=== PATIENT | male | born 1995 | race American Indian/Alaskan Native ===

== ENCOUNTER 2017-05-19 00:57 | Emergency (ER) | payer OTHER, MEDICAID ==
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
[2017-05-19 02:55] VITALS: BP 136/71; PULSE 78; RESP 17; TEMP 98.7; O2SAT 99
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
--- NOTE | 2017-05-20 14:37 | ED PDOC ---
ED Additional Note - Date & Time of Evaluation Date of Evaluation: 05/20/17 Time of Evaluation: 14:35 - Physician Additional Note Physician Additional Note: I spoke to the patient that he is still pretty uncomfortable on the neck. I discussed about the official reading on the cervical spine xray which is limited view and obsecured soft tissue noted with CT is ideal. Pt. stated that he will return back today for CT cervical. Official Cervical spine xray. IMPRESSION: Technically limited. Widened prevertebral soft tissues. Consider further evaluation with computed tomography if there is persistent clinical suspicion of cervical spine fracture.
== END 2017-05-19 02:53 | disposition home or self-care (01) ==
LOC: MERGE 00:57 → ED 00:57
DX: S13.4XXA Sprain of ligaments of cervical spine, initial encounter (principal); V49.9XXA Car occupant (driver) (passenger) injured in unspecified traffic accident, initial encounter

== ENCOUNTER 2018-04-11 20:50 | Emergency (ER) | payer MEDICAID, OTHER ==
[2018-04-11 20:59] VITALS: BMI 50.8
[2018-04-11 21:09] VITALS: BP 128/72; PULSE 89; RESP 18; TEMP 98.9; O2SAT 99
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
[2018-04-11 21:58] LABS: HEMOGLOBIN 14.1 g/dL (14.0-18.0); MEAN CELL VOLUME 78.9 fl (80.0-105.0); MEAN CORPUSCULAR HEMOGLOBIN 26.3 pg (25.0-35.0); MEAN CORPUSCULAR HGB CONC 33.3 g/dl (31.0-37.0); MEAN PLATELET VOLUME 10.4 fl (7.0-11.0); RBC 5.36 10^6/uL (3.5-6.1); RED CELL DISTRIBUTION WIDTH 14.5 % (11.5-14.5); WHITE BLOOD COUNT 8.5 10^3/uL (4.5-11.0)
[2018-04-11 22:02] LABS: INR 1.27; PARTIAL THROMBOPLASTIN TIME 29.4 Seconds (25.1-36.5); PROTHROMBIN TIME 14.6 SECONDS (9.4-12.5)
[2018-04-11 22:49] LABS: ALB/GLOB RATIO 1.2 (1.1-1.8); ALBUMIN 4.7 g/dL (3.0-4.8); ALT/SGPT 39 U/L (7-56); AST/SGOT 26 U/L (17-59); BLOOD UREA NITROGEN 6 mg/dL (7-21); CALCIUM 9.5 mg/dL (8.4-10.5); GFR NON-AFRICAN AMERICAN > 60
[2018-04-11 23:01] LABS: TROPONIN I < 0.01 ng/mL
[2018-04-11 23:08] LABS: CK-MB 1.7 ng/mL (0.0-3.6)
--- NOTE | 2018-04-12 09:07 | RAD ---
Date of service: 04/11/2018 HISTORY: chest pain COMPARISON: No prior. FINDINGS: LUNGS: No active pulmonary disease. PLEURA: No significant pleural effusion identified, no pneumothorax apparent. CARDIOVASCULAR: No aortic atherosclerotic calcification present. Normal cardiac size. No pulmonary vascular congestion. OSSEOUS STRUCTURES: No significant abnormalities. VISUALIZED UPPER ABDOMEN: Normal. OTHER FINDINGS: None. IMPRESSION: No active disease.
--- NOTE | 2018-04-12 10:11 | CARD ---
APPROVED REPORT Date of service: 04/11/2018 EKG Measurement Heart [id number] <Conclusion> Normal sinus rhythm Normal ECG
== END 2018-04-12 | disposition left against medical advice (07) ==
LOC: ED 20:50
DX: R07.9 Chest pain, unspecified (principal); F17.210 Nicotine dependence, cigarettes, uncomplicated